=== PATIENT | female | born 1955 | race Caucasian/White ===

== ENCOUNTER 2018-06-28 10:15 | Emergency (ER) | payer MEDICAID ==
[~2018-06-28] VITALS: Ht 157.5 cm; Wt 73.0 kg
[2018-06-28 10:38] VITALS: BP 167/66; Ht 157.5 cm; Wt 73.0 kg
== END 2018-06-28 12:55 | disposition home or self-care (01) ==
LOC: ED 10:15
DX: M79.641 Pain in right hand (principal); M79.89 Other specified soft tissue disorders; R20.0 Anesthesia of skin
CPT/HCPCS: 82962; J1885